=== PATIENT | female | born 1960 | race Caucasian/White ===

== ENCOUNTER 2017-06-17 13:41 | Day surgery (SDC) | payer MEDICARE ==
[~2017-06-17] VITALS: Ht 162.6 cm; Wt 74.0 kg
[~2017-06-17 13:41] MED LIST: CETI5; CLIN300; LOVA40; METF500
[2017-06-17] MEDS ORDERED: ASPI81CH (14:20)
== END 2017-06-17 16:02 | disposition home or self-care (01) ==
LOC: ORSCSDS 13:41
PROVIDERS: Surgery
PROC: 0DJD8ZZ Inspection of Lower Intestinal Tract, Via Natural or Artificial Opening Endoscopic (ICD-10-PCS; principal; 2017-06-17 14:45)
DX: Z12.11 Encounter for screening for malignant neoplasm of colon (principal); K57.30 Diverticulosis of large intestine without perforation or abscess without bleeding; E11.9 Type 2 diabetes mellitus without complications; E78.5 Hyperlipidemia, unspecified; F70 Mild intellectual disabilities; Z79.84 Long term (current) use of oral hypoglycemic drugs; Z79.899 Other long term (current) drug therapy
CPT/HCPCS: 82947; J7120

== ENCOUNTER → 2019-07-14 | Outpatient (CLI) | payer MEDICARE ==
[~2019-07-14] MED LIST changes: +ASPI81CH
[2019-07-14 13:44] LABS: BASOPHILS ABSOLUTE AUTO 0.05 K/mm3 (0.00-0.23); BASOPHILS PERCENT AUTO 0 % (0-2); EOSINOPHILS PERCENT AUTO 0 % (0-6); Hematocrit 42.6 % (33.0-51.0); Hemoglobin 14.8 g/dL (11.5-16.0); IMMATURE GRAN ABSOLUTE AUTO 0.12 K/mm3 (0.00-0.10); IMMATURE GRAN PERCENT AUTO 1 % (0-1); LYMPHOCYTES ABSOLUTE AUTO 1.34 K/mm3 (0.84-5.20); LYMPHOCYTES PERCENT AUTO 6 % (21-46); MONOCYTES ABSOLUTE AUTO 1.41 K/mm3 (0.16-1.47); MONOCYTES PERCENT AUTO 6 % (4-13); Mean Corpuscular HGB 30.4 pg (26.0-34.0); Mean Corpuscular HGB Conc 34.7 g/dL (31.5-36.5); Mean Corpuscular Volume 88 fL (80-100); Mean Platelet Volume 9.6 fL (9.1-12.4); NEUTROPHILS PERCENT AUTO 87 % (41-73); Platelet Count 312 K/mm3 (150-400); RDW Coefficient Variation 12.7 % (11.7-14.2); RDW Standard Deviation 40.6 fL (35.1-46.3); Red Blood Cell Count 4.87 M/mm3 (3.80-5.20); White Blood Cell Count 22.12 K/mm3 (4.00-11.30)
[2019-07-14 13:55] LABS: Albumin, Blood 3.9 g/dL (3.4-5.0); Albumin/Globulin Ratio 0.8 (0.8-1.8); Bilirubin, Total 0.6 mg/dL (0.1-1.0); Bun/Creatinine Ratio 22.2 (12.0-20.0); Calcium, Blood 9.3 mg/dL (8.5-10.1); Creatinine, Blood 0.99 mg/dL (0.40-1.00); Globulin, Blood 4.9 g/dL (2.2-4.0); Potassium, Blood 3.7 mmol/L (3.5-5.5); Total Protein, Blood 8.8 g/dL (6.4-8.2)
== END | disposition home or self-care (01) ==
LOC: LAB SHORT 13:39 → LAB EV 13:39
PROVIDERS: Physician Assistant
DX: R10.9 Unspecified abdominal pain (principal)
CPT/HCPCS: 80053; 83690; 85025

== ENCOUNTER → 2020-03-22 | Outpatient (CLI) | payer MEDICARE ==
[2020-03-25 14:09] LABS: CORONAVIRUS (COVID19) CSH-NRL Negative (Negative)
== END | disposition home or self-care (01) ==
LOC: LAB SHORT 14:41 → LAB 14:41
PROVIDERS: Nurse Practitioner Family
DX: Z20.9 Contact with and (suspected) exposure to unspecified communicable disease (principal); Z20.828 Contact with and (suspected) exposure to other viral communicable diseases
CPT/HCPCS: U0003

== ENCOUNTER 2020-12-18 22:53 | Emergency (ER) | payer MEDICARE ==
[~2020-12-18] VITALS: Ht 165.1 cm; Wt 81.7 kg
[2020-12-18 23:21] LABS: BASOPHILS ABSOLUTE AUTO 0.03 K/mm3 (0.00-0.23); BASOPHILS PERCENT AUTO 0 % (0-2); EOSINOPHILS ABSOLUTE AUTO 0.15 K/mm3 (0.00-0.68); EOSINOPHILS PERCENT AUTO 2 % (0-6); Hematocrit 44.4 % (33.0-51.0); Hemoglobin 14.8 g/dL (11.5-16.0); IMMATURE GRAN ABSOLUTE AUTO 0.04 K/mm3 (0.00-0.10); IMMATURE GRAN PERCENT AUTO 1 % (0-1); LYMPHOCYTES ABSOLUTE AUTO 2.58 K/mm3 (0.84-5.20); LYMPHOCYTES PERCENT AUTO 31 % (21-46); MONOCYTES ABSOLUTE AUTO 1.48 K/mm3 (0.16-1.47); MONOCYTES PERCENT AUTO 18 % (4-13); Mean Corpuscular HGB 29.5 pg (26.0-34.0); Mean Corpuscular HGB Conc 33.3 g/dL (31.5-36.5); Mean Corpuscular Volume 89 fL (80-100); Mean Platelet Volume 10.1 fL (9.1-12.4); NEUTROPHILS ABSOLUTE AUTO 4.13 K/mm3 (1.96-9.15); NEUTROPHILS PERCENT AUTO 49 % (41-73); Platelet Count 223 K/mm3 (150-400); RDW Coefficient Variation 12.6 % (11.7-14.2); RDW Standard Deviation 41.1 fL (35.1-46.3); Red Blood Cell Count 5.01 M/mm3 (3.80-5.20); White Blood Cell Count 8.41 K/mm3 (4.00-11.30)
[2020-12-18 23:42] LABS: Alanine Aminotransfer (ALT/SGP 83 U/L (12-78); Albumin, Blood 3.4 g/dL (3.4-5.0); Albumin/Globulin Ratio 0.7 (0.8-1.8); Alk Phos 95 U/L (50-136); Anion Gap 10 mmol/L (6-16); Aspartate Aminotrans (AST/SGOT 40 U/L (12-37); Bilirubin, Total 0.5 mg/dL (0.1-1.0); Blood Urea Nitrogen 22 mg/dL (8-24); Bun/Creatinine Ratio 25.6 (12.0-20.0); CO2, Blood 24 mmol/L (21-32); Chloride, Blood 103 mmol/L (98-108); Creatinine, Blood 0.86 mg/dL (0.40-1.00); Glomerular Filtration Rate >60 (60-); Glucose, Blood 138 mg/dL (70-99); Magnesium, Blood 2.1 mg/dL (1.6-2.4); Potassium, Blood 4.2 mmol/L (3.5-5.5); Sodium, Blood 137 mmol/L (136-145); Total Protein, Blood 8.4 g/dL (6.4-8.2); Troponin I <0.015 ng/mL (0.000-0.040)
== END 2020-12-19 06:05 | disposition home or self-care (01) ==
LOC: ER 22:53
PROVIDERS: Emergency Medicine
DX: R07.9 Chest pain, unspecified (principal); U07.1 COVID-19; E11.9 Type 2 diabetes mellitus without complications; I10 Essential (primary) hypertension; Z79.84 Long term (current) use of oral hypoglycemic drugs; Z79.899 Other long term (current) drug therapy; Z91.018 Allergy to other foods
CPT/HCPCS: 36415; 71045; 80053; 83735; 83880; 84145; 84484; 85025; 85379; 93005; 93010; 99285-25

== ENCOUNTER 2020-12-25 07:30 | Emergency (ER) | payer MEDICARE ==
[~2020-12-25] VITALS: Ht 165.1 cm; Wt 81.7 kg
[2020-12-25] MEDS ORDERED: ASPI81CH PO (07:45)
[2020-12-25] MEDS ORDERED: ATEN25 PO (07:45)
[2020-12-25] MEDS ORDERED: ZYRTEC10 M2 PO (07:46)
[2020-12-25] MEDS ORDERED: SITA100T2 PO (07:46)
[2020-12-25] MEDS ORDERED: ATOR20 PO (07:46)
[2020-12-25] MEDS ORDERED: AMARYL PO (07:46)
[2020-12-25] MEDS ORDERED: Colace100 MG PO (07:46)
[2020-12-25] MEDS ORDERED: METF500 PO (07:47)
[2020-12-25] MEDS ORDERED: SALONPAS PATCH1 EACH TOP (07:47)
[2020-12-25] MEDS ORDERED: Prinivil10 MG PO (07:47)
[2020-12-25] MEDS ORDERED: TUMS500 MG PO (07:48)
[2020-12-25 08:52] LABS: BASOPHILS ABSOLUTE AUTO 0.04 K/mm3 (0.00-0.23); BASOPHILS PERCENT AUTO 0 % (0-2); EOSINOPHILS ABSOLUTE AUTO 0.08 K/mm3 (0.00-0.68); EOSINOPHILS PERCENT AUTO 1 % (0-6); Hemoglobin 14.6 g/dL (11.5-16.0); IMMATURE GRAN ABSOLUTE AUTO 0.07 K/mm3 (0.00-0.10); IMMATURE GRAN PERCENT AUTO 1 % (0-1); LYMPHOCYTES ABSOLUTE AUTO 2.14 K/mm3 (0.84-5.20); LYMPHOCYTES PERCENT AUTO 17 % (21-46); MONOCYTES ABSOLUTE AUTO 0.74 K/mm3 (0.16-1.47); MONOCYTES PERCENT AUTO 6 % (4-13); Mean Corpuscular Volume 88 fL (80-100); Mean Platelet Volume 9.5 fL (9.1-12.4); NEUTROPHILS ABSOLUTE AUTO 9.26 K/mm3 (1.96-9.15); NEUTROPHILS PERCENT AUTO 75 % (41-73); Platelet Count 292 K/mm3 (150-400); RDW Coefficient Variation 12.3 % (11.7-14.2); Red Blood Cell Count 4.87 M/mm3 (3.80-5.20); White Blood Cell Count 12.33 K/mm3 (4.00-11.30)
[2020-12-25 09:19] LABS: Alanine Aminotransfer (ALT/SGP 125 U/L (12-78); Albumin, Blood 3.4 g/dL (3.4-5.0); Albumin/Globulin Ratio 0.6 (0.8-1.8); Alk Phos 96 U/L (50-136); Anion Gap 8 mmol/L (6-16); Aspartate Aminotrans (AST/SGOT 70 U/L (12-37); Bilirubin, Total 0.5 mg/dL (0.1-1.0); Blood Urea Nitrogen 38 mg/dL (8-24); Bun/Creatinine Ratio 43.2 (12.0-20.0); CO2, Blood 18 mmol/L (21-32); Calcium, Blood 7.9 mg/dL (8.5-10.1); Chloride, Blood 109 mmol/L (98-108); Creatinine, Blood 0.88 mg/dL (0.40-1.00); Globulin, Blood 5.3 g/dL (2.2-4.0); Glomerular Filtration Rate >60 (60-); Glucose, Blood 174 mg/dL (70-99); Sodium, Blood 135 mmol/L (136-145); Total Protein, Blood 8.7 g/dL (6.4-8.2); Troponin I <0.015 ng/mL (0.000-0.040)
== END 2020-12-25 18:30 | disposition home or self-care (01) ==
LOC: ER 07:30
PROVIDERS: Emergency Medicine
DX: U07.1 COVID-19 (principal); R07.9 Chest pain, unspecified; Z79.82 Long term (current) use of aspirin; Z79.899 Other long term (current) drug therapy; Z79.84 Long term (current) use of oral hypoglycemic drugs
CPT/HCPCS: 36415; 71045; 80053; 83690; 84484; 85025; 93005; 93010; 99284-25; M0243; Q0243

== ENCOUNTER 2022-10-14 19:04 | Emergency (ER) | payer MEDICARE ==
[~2022-10-14] VITALS: Ht 165.1 cm; Wt 45.4 kg
[~2022-10-14 19:04] MED LIST changes: +AMARYL PO; +ASPI81CH PO; +ATEN25 PO; +ATOR20 PO; +Colace100 MG PO; +METF500 PO; +Prinivil10 MG PO; +SALONPAS PATCH1 EACH TOP; +SITA100T2 PO; +TUMS500 MG PO; +ZYRTEC10 M2 PO
[2022-10-14 19:20] VITALS: BP 140/87
== END 2022-10-14 19:53 | disposition home or self-care (01) ==
LOC: ER 19:04
DX: M79.644 Pain in right finger(s) (principal); M77.9 Enthesopathy, unspecified; Z88.8 Allergy status to other drugs, medicaments and biological substances; Z91.018 Allergy to other foods; Z79.899 Other long term (current) drug therapy; Z79.82 Long term (current) use of aspirin; Z79.84 Long term (current) use of oral hypoglycemic drugs; I10 Essential (primary) hypertension; E11.9 Type 2 diabetes mellitus without complications
CPT/HCPCS: 29125; 99282-25

== ENCOUNTER 2023-01-08 14:36 | Emergency (ER) | payer MEDICARE ==
[~2023-01-08] VITALS: Ht 165.1 cm; Wt 81.7 kg
[2023-01-08] MEDS ORDERED: OMEP20ER PO (14:58)
[2023-01-08] MEDS ORDERED: RYBELSUS3 MG PO (14:58)
[2023-01-08 15:19] LABS: BASOPHILS ABSOLUTE AUTO 0.03 K/mm3 (0.00-0.23); BASOPHILS PERCENT AUTO 0 % (0-2); EOSINOPHILS ABSOLUTE AUTO 0.11 K/mm3 (0.00-0.68); EOSINOPHILS PERCENT AUTO 1 % (0-6); Hematocrit 42.8 % (33.0-51.0); IMMATURE GRAN ABSOLUTE AUTO 0.05 K/mm3 (0.00-0.10); IMMATURE GRAN PERCENT AUTO 1 % (0-1); LYMPHOCYTES ABSOLUTE AUTO 2.68 K/mm3 (0.84-5.20); LYMPHOCYTES PERCENT AUTO 28 % (21-46); MONOCYTES ABSOLUTE AUTO 0.62 K/mm3 (0.16-1.47); MONOCYTES PERCENT AUTO 6 % (4-13); Mean Corpuscular HGB 30.5 pg (26.0-34.0); Mean Corpuscular Volume 87 fL (80-100); Mean Platelet Volume 10.3 fL (9.1-12.4); NEUTROPHILS ABSOLUTE AUTO 6.24 K/mm3 (1.96-9.15); NEUTROPHILS PERCENT AUTO 64 % (41-73); Platelet Count 250 K/mm3 (150-400); RDW Coefficient Variation 12.1 % (11.7-14.2); RDW Standard Deviation 38.5 fL (35.1-46.3); Red Blood Cell Count 4.91 M/mm3 (3.80-5.20); White Blood Cell Count 9.73 K/mm3 (4.00-11.30)
[2023-01-08 15:44] LABS: Albumin, Blood 3.3 g/dL (3.4-5.0); Albumin/Globulin Ratio 0.8 (0.8-1.8); Bilirubin, Total 0.5 mg/dL (0.1-1.0); Bun/Creatinine Ratio 28.4 (12.0-20.0); Calcium, Blood 8.8 mg/dL (8.5-10.1); Creatinine, Blood 0.67 mg/dL (0.40-1.00); Globulin, Blood 4.3 g/dL (2.2-4.0); Potassium, Blood 3.8 mmol/L (3.5-5.5); Total Protein, Blood 7.6 g/dL (6.4-8.2)
[2023-01-08 19:00] VITALS: BP 117/69
== END 2023-01-08 19:21 | disposition home or self-care (01) ==
LOC: ER 14:36
PROVIDERS: Student in an Organized Health Care Education/Training Program
DX: R10.13 Epigastric pain (principal); E11.65 Type 2 diabetes mellitus with hyperglycemia; K82.4 Cholesterolosis of gallbladder; I10 Essential (primary) hypertension; Z79.899 Other long term (current) drug therapy; Z79.82 Long term (current) use of aspirin; Z79.84 Long term (current) use of oral hypoglycemic drugs; Z91.014 Allergy to mammalian meats; Z91.018 Allergy to other foods
CPT/HCPCS: 76705; 80053; 82947; 83690; 84484; 85025; 93005; 93010; 96361; 96374; 99285-25; A9270; J1815; J1885; J7030

== ENCOUNTER 2023-01-09 18:56 | Inpatient (IN) | payer MEDICARE ==
[~2023-01-09] VITALS: Ht 165.1 cm; Wt 81.3 kg
[~2023-01-09 18:56] MED LIST changes: +OMEP20ER PO; +RYBELSUS3 MG PO
[2023-01-09 21:01] LABS: BASOPHILS ABSOLUTE AUTO 0.05 K/mm3 (0.00-0.23); BASOPHILS PERCENT AUTO 0 % (0-2); EOSINOPHILS PERCENT AUTO 0 % (0-6); Hematocrit 41.7 % (33.0-51.0); Hemoglobin 14.7 g/dL (11.5-16.0); IMMATURE GRAN ABSOLUTE AUTO 0.25 K/mm3 (0.00-0.10); IMMATURE GRAN PERCENT AUTO 1 % (0-1); LYMPHOCYTES ABSOLUTE AUTO 1.14 K/mm3 (0.84-5.20); LYMPHOCYTES PERCENT AUTO 5 % (21-46); MONOCYTES ABSOLUTE AUTO 1.21 K/mm3 (0.16-1.47); MONOCYTES PERCENT AUTO 5 % (4-13); Mean Corpuscular HGB 30.5 pg (26.0-34.0); Mean Corpuscular HGB Conc 35.3 g/dL (31.5-36.5); Mean Corpuscular Volume 87 fL (80-100); Mean Platelet Volume 10.3 fL (9.1-12.4); NEUTROPHILS ABSOLUTE AUTO 22.04 K/mm3 (1.96-9.15); NEUTROPHILS PERCENT AUTO 89 % (41-73); Platelet Count 234 K/mm3 (150-400); RDW Coefficient Variation 12.8 % (11.7-14.2); RDW Standard Deviation 39.8 fL (35.1-46.3); Red Blood Cell Count 4.82 M/mm3 (3.80-5.20); White Blood Cell Count 24.69 K/mm3 (4.00-11.30)
[2023-01-09 21:22] LABS: Albumin, Blood 2.9 g/dL (3.4-5.0); Albumin/Globulin Ratio 0.6 (0.8-1.8); Bilirubin, Total 0.7 mg/dL (0.1-1.0); Bun/Creatinine Ratio 21.6 (12.0-20.0); Calcium, Blood 8.3 mg/dL (8.5-10.1); Creatinine, Blood 0.88 mg/dL (0.40-1.00); Globulin, Blood 4.6 g/dL (2.2-4.0); Potassium, Blood 3.9 mmol/L (3.5-5.5); Total Protein, Blood 7.5 g/dL (6.4-8.2)
[2023-01-09 23:53] VITALS: BP 100/67
[2023-01-10 03:54] VITALS: BP 104/64
--- NOTE | 2023-01-10 04:52 | NUR ---
SHIFT SUMMARY NOC ADMIT FROM ED WITH RUQ ABD PAIN ACUTE Cholecystitis. PT IS HAVING CHOLY IN THE AM TODAY. PT HAS NOT HAD ANY SEVERE PAIN AND HAS NOT REQUEST PAIN RX. PT IS NPO IN PREPARATION OF PROCEDURE. PT HAS NS INFUSING @ 150 ML/HR PER SEPSIS PROTOCOL. PT ON TELE NSR IN 80'S. PT IS A/O X 4, BUT SLOW AT TIMES DUE TO DEVELOPMENTAL DELAY AND HAS GUARDIANSHIP. PT IS INDEPENDENT IN ROOM BUT ON BEDREST WITH BATHROOM PRIVLEDGES DUE TO UPCOMING SURGERY. PT IS CURRENTLY RESTING WITH BED IN LOWEST POSITION, AND CALL LIGHT WITHIN REACH.
[2023-01-10 05:51] LABS: Hematocrit 36.9 % (33.0-51.0); Hemoglobin 12.7 g/dL (11.5-16.0); Mean Corpuscular HGB 30.3 pg (26.0-34.0); Mean Corpuscular HGB Conc 34.4 g/dL (31.5-36.5); Mean Corpuscular Volume 88 fL (80-100); Mean Platelet Volume 10.5 fL (9.1-12.4); Platelet Count 209 K/mm3 (150-400); RDW Coefficient Variation 12.9 % (11.7-14.2); RDW Standard Deviation 41.1 fL (35.1-46.3); Red Blood Cell Count 4.19 M/mm3 (3.80-5.20); White Blood Cell Count 19.64 K/mm3 (4.00-11.30)
[2023-01-10 06:25] LABS: Albumin, Blood 2.5 g/dL (3.4-5.0); Albumin/Globulin Ratio 0.6 (0.8-1.8); Bilirubin, Total 0.5 mg/dL (0.1-1.0); Bun/Creatinine Ratio 28.1 (12.0-20.0); Calcium, Blood 7.8 mg/dL (8.5-10.1); Creatinine, Blood 0.71 mg/dL (0.40-1.00); Globulin, Blood 3.9 g/dL (2.2-4.0); Potassium, Blood 3.4 mmol/L (3.5-5.5); Total Protein, Blood 6.4 g/dL (6.4-8.2)
[2023-01-10 07:11] VITALS: BP 98/62
--- NOTE | 2023-01-10 11:17 | NUR ---
ASSUMED CARE OF PT. PT NPO IN PREPARATION FOR SURGERY. MRI ORDERED, PT ABLE TO ANSWER QUESTIONAIRES APPROPRIATELY. PT VERBALIZES MINOR ANXIETY R/T UPCOMING SURGERY, THERAPEUTIC COMMUNICATION USED TO RELIEVE ANXIETY. BP TRENDING LOW, NO SYMPTOMS VERBALIZED. PT A&O 3-4, ABLE TO ANSWER QUESTIONS APPROPRIATELY. HX OF DEVELOPMENTAL DELAYS. NO ACUTE EVENTS NOTED AT THIS TIME. PT IN A POSITION OF SAFETY WITH BED LOCKED AND IN LOWEST POSITION, CALL LIGHT WITHIN REACH, AND NONSKID SOCKS IN PLACE.
[2023-01-10 15:49] VITALS: BP 114/71
--- NOTE | 2023-01-10 15:51 | NUR ---
SURGEON IN ROOM TO TALK TO PT. SURGEON TO CALL GUARDIAN AND PCP REGARDING UPDATES.
--- NOTE | 2023-01-10 17:20 | NUR ---
PT INFORMED WHILE DOING HER CBG AND GIVING HER A HALF SANDWICH AND ICE TEA SHE HAD REQUESTED SHE WAS GOING [facility]. THIS RN ADVISED PT OF RISKS INVOLVED IN LEAVING PRIOR TO END OF TREATMENT: WORSENING INFECTION, NECROSIS OF WOUND, RESPIRATORY FAILURE, . PT VU AND RESPONDED "YOU KNOW, WELL I GOTTA DO WHAT I GOTTA GO HOME AND DO." I INFORMED THE PATIENT SHE WILL LIKELY NEED TO RETURN TO THE ER AND SHE RESPONDED "THEN I WILL GO HOME AND DO WHAT I NEED TO DO AND COME BACK." PT STATED SHE WOULD LEAVE WHEN HER GOT HERE [facility]. PT THEN CALLED AT 1715 AND SAID "TAKE MY IV'S OUT NOW, I'M LEAVING." DR. CABAN NOTIFIED OF PT LEAVING AMA.
--- NOTE | 2023-01-10 17:44 | NUR ---
SHIFT SUMMARY PT A&OX3-4, HX OF DEVELOPMENTAL DELAYS. ANSWERS QUESTIONS CORRECTLY. PT RECEIVED ABDOMINAL MRI. PT DID NOT RECEIVE SURGERY, SURGEON AT BEDSIDE TO INFORM OF THE NEED OF SURGERY ELSEWHERE. DIET ADVANCED TO CLEAR LIQUIDS, PT TOLERATING DIET WELL. NO COMPLAINTS OF PAIN. NO ACUTE EVENTS DURING MY SHIFT, VITAL SIGNS STABLE, PT LEFT IN A POSITION OF COMFORT AND SAFETY WITH BED LOCKED AND IN LOWEST POSITION, NONSKID SOCKS IN PLACE, AND CALL LIGHT WITHIN REACH.
[2023-01-10 19:48] VITALS: BP 97/63
[2023-01-11 05:26] VITALS: BP 129/77
[2023-01-11 05:36] LABS: BASOPHILS ABSOLUTE AUTO 0.04 K/mm3 (0.00-0.23); BASOPHILS PERCENT AUTO 0 % (0-2); EOSINOPHILS ABSOLUTE AUTO 0.12 K/mm3 (0.00-0.68); EOSINOPHILS PERCENT AUTO 1 % (0-6); Hemoglobin 13.4 g/dL (11.5-16.0); IMMATURE GRAN PERCENT AUTO 1 % (0-1); LYMPHOCYTES ABSOLUTE AUTO 2.57 K/mm3 (0.84-5.20); LYMPHOCYTES PERCENT AUTO 15 % (21-46); MONOCYTES ABSOLUTE AUTO 1.24 K/mm3 (0.16-1.47); MONOCYTES PERCENT AUTO 7 % (4-13); Mean Corpuscular HGB Conc 34.4 g/dL (31.5-36.5); Mean Corpuscular Volume 87 fL (80-100); Mean Platelet Volume 10.1 fL (9.1-12.4); NEUTROPHILS ABSOLUTE AUTO 13.59 K/mm3 (1.96-9.15); NEUTROPHILS PERCENT AUTO 77 % (41-73); Platelet Count 222 K/mm3 (150-400); RDW Coefficient Variation 12.9 % (11.7-14.2); RDW Standard Deviation 40.7 fL (35.1-46.3); Red Blood Cell Count 4.46 M/mm3 (3.80-5.20); White Blood Cell Count 17.66 K/mm3 (4.00-11.30)
[2023-01-11 06:08] LABS: Albumin, Blood 2.3 g/dL (3.4-5.0); Albumin/Globulin Ratio 0.5 (0.8-1.8); Bilirubin, Total 0.6 mg/dL (0.1-1.0); Bun/Creatinine Ratio 18.9 (12.0-20.0); Calcium, Blood 7.8 mg/dL (8.5-10.1); Creatinine, Blood 0.58 mg/dL (0.40-1.00); Globulin, Blood 4.5 g/dL (2.2-4.0); Magnesium, Blood 1.9 mg/dL (1.6-2.4); Phosphorus, Blood 1.4 mg/dL (2.5-4.9); Potassium, Blood 3.6 mmol/L (3.5-5.5); Total Protein, Blood 6.8 g/dL (6.4-8.2)
[2023-01-11 07:58] VITALS: BP 124/75
[2023-01-11 15:32] VITALS: BP 127/74
--- NOTE | 2023-01-11 17:54 | NUR ---
SHIFT SUMMARY- PT AERT AND ORIENTED, LIVES AT [facility]. PT SEEMS TO HAVE A LACK OF UNDERSTANDING OF HER HEALTH CARE ISSUES. DR ROSALES CAME TO SEE HER AFTER HER HIDA SCAN TODAY AND EXPLAINED THAT SHE WILL NEED TO BE TRANSFERED TO ANOTHER FACILITY FOR SURGERY AND THAT MAY TAKE SEVERAL DAYS, CALLLED DR JHAVERI HE IS AWARE OF THE RECOMENDATION. A LITTLE LATER THE PT ASKED THIS RN IF SHE WAS GOING TO HAVE TO STAY THE NIGHT AGAIN TONIGHT. PT HAS 2 IV'S THE LEFT AC IV FLUSHES WELL BUT IS VERY POSITIONAL, RFA IV IS GOOD FOR CONT FLUIDS. PT IS INDEPEDENT IN THE ROOM, SITTING UP IN BED EATING HER CLEAR LIQUID DINNER NO CURRENT S&S OF DISTRESS.
[2023-01-11 20:59] VITALS: BP 130/89
[2023-01-12 03:10] VITALS: BP 118/75
--- NOTE | 2023-01-12 03:20 | NUR ---
No changes overnight for Tere. She had no complaints of pain or discomfort. Did really well ambulating from bed to bath with just a standby from nursing staff. No difficulty tolerating IV antibiotics or fluids throughout the shift. will continue monitoring for safety or changes.
[2023-01-12 07:56] VITALS: BP 123/80
[2023-01-12 16:34] LABS: BASOPHILS ABSOLUTE AUTO 0.04 K/mm3 (0.00-0.23); BASOPHILS PERCENT AUTO 0 % (0-2); EOSINOPHILS ABSOLUTE AUTO 0.09 K/mm3 (0.00-0.68); EOSINOPHILS PERCENT AUTO 1 % (0-6); Hematocrit 38.3 % (33.0-51.0); Hemoglobin 13.4 g/dL (11.5-16.0); IMMATURE GRAN ABSOLUTE AUTO 0.11 K/mm3 (0.00-0.10); IMMATURE GRAN PERCENT AUTO 1 % (0-1); LYMPHOCYTES ABSOLUTE AUTO 2.21 K/mm3 (0.84-5.20); LYMPHOCYTES PERCENT AUTO 21 % (21-46); MONOCYTES ABSOLUTE AUTO 1.04 K/mm3 (0.16-1.47); MONOCYTES PERCENT AUTO 10 % (4-13); Mean Corpuscular HGB 29.9 pg (26.0-34.0); Mean Corpuscular Volume 86 fL (80-100); Mean Platelet Volume 9.8 fL (9.1-12.4); NEUTROPHILS ABSOLUTE AUTO 7.07 K/mm3 (1.96-9.15); NEUTROPHILS PERCENT AUTO 67 % (41-73); Platelet Count 275 K/mm3 (150-400); RDW Coefficient Variation 12.6 % (11.7-14.2); RDW Standard Deviation 38.9 fL (35.1-46.3); Red Blood Cell Count 4.48 M/mm3 (3.80-5.20); White Blood Cell Count 10.56 K/mm3 (4.00-11.30)
--- NOTE | 2023-01-12 16:42 | NUR ---
CALLED DR JHAVERI- GUARDIAN PHONE NUMBER PT HAD CALLED HER FRIEND TO TELL HER SHE NEEDED A RIDE TO [place] TOMORROW MORNING. THE FRIEND WAS CONCERNED SHE HAD NOT HEARD THIS FROM THE PT LEGAL GUARDIAN. SHE CAME TO SEE THE PT AND CONVEYED CONCERN THAT THE PT LEGAL GUARDIAN HAS NOT BEEN INFORMED OF THE PLAN FOR THE PT CARE. CALLED DR JHAVERI AND OFFERED TO PROVIDE HIM WITH THE PT LEGAL GUARDIAN'S CONTACT INFO: MILI HINOJOSA [phone].
[2023-01-12 16:53] LABS: Albumin, Blood 2.5 g/dL (3.4-5.0); Albumin/Globulin Ratio 0.5 (0.8-1.8); Bilirubin, Total 0.7 mg/dL (0.1-1.0); Bun/Creatinine Ratio 14.7 (12.0-20.0); Calcium, Blood 8.5 mg/dL (8.5-10.1); Creatinine, Blood 0.61 mg/dL (0.40-1.00); Globulin, Blood 4.6 g/dL (2.2-4.0); Potassium, Blood 2.9 mmol/L (3.5-5.5); Total Protein, Blood 7.1 g/dL (6.4-8.2)
[2023-01-12 20:08] VITALS: BP 122/70
--- NOTE | 2023-01-12 20:20 | NUR ---
SHIFT SUMMARY- PT ALERT, ORIENTED AND INDEPENDENT IN THE ROOM, SHE HAD A SHOWER TODAY. REPORT COMPLETED WITH NIGHT RN PT HAS HAD NO ACUTE CHANGE. THE PLAN IS FOR THE PT TO DISCHARGE TOMORROW MORNING, SHE HAS ASKED A FRIEND TO TRANSPORT HER TO [facility], UNCERTAIN IF THE PT GUARDIAN IS FULLY AWARE OF THE PLAN FOR PT DISCHARGE. PT SITTING IN BED, CALL LIGHT IN REACH LR INFUSING, NO S&S OF DISTRESS.
[2023-01-13 07:36] VITALS: BP 132/85
[2023-01-13 14:36] LABS: BASOPHILS ABSOLUTE AUTO 0.02 K/mm3 (0.00-0.23); BASOPHILS PERCENT AUTO 0 % (0-2); EOSINOPHILS ABSOLUTE AUTO 0.14 K/mm3 (0.00-0.68); EOSINOPHILS PERCENT AUTO 2 % (0-6); Hemoglobin 12.9 g/dL (11.5-16.0); IMMATURE GRAN ABSOLUTE AUTO 0.08 K/mm3 (0.00-0.10); IMMATURE GRAN PERCENT AUTO 1 % (0-1); LYMPHOCYTES ABSOLUTE AUTO 2.06 K/mm3 (0.84-5.20); LYMPHOCYTES PERCENT AUTO 23 % (21-46); MONOCYTES ABSOLUTE AUTO 1.06 K/mm3 (0.16-1.47); MONOCYTES PERCENT AUTO 12 % (4-13); Mean Corpuscular HGB 30.6 pg (26.0-34.0); Mean Corpuscular HGB Conc 35.8 g/dL (31.5-36.5); Mean Corpuscular Volume 85 fL (80-100); Mean Platelet Volume 9.4 fL (9.1-12.4); NEUTROPHILS ABSOLUTE AUTO 5.69 K/mm3 (1.96-9.15); NEUTROPHILS PERCENT AUTO 63 % (41-73); Platelet Count 284 K/mm3 (150-400); RDW Coefficient Variation 12.4 % (11.7-14.2); RDW Standard Deviation 38.5 fL (35.1-46.3); Red Blood Cell Count 4.22 M/mm3 (3.80-5.20); White Blood Cell Count 9.05 K/mm3 (4.00-11.30)
[2023-01-13 14:54] LABS: Albumin, Blood 2.3 g/dL (3.4-5.0); Albumin/Globulin Ratio 0.5 (0.8-1.8); Bilirubin, Total 0.6 mg/dL (0.1-1.0); Bun/Creatinine Ratio 8.8 (12.0-20.0); Calcium, Blood 8.3 mg/dL (8.5-10.1); Creatinine, Blood 0.69 mg/dL (0.40-1.00); Globulin, Blood 4.6 g/dL (2.2-4.0); Magnesium, Blood 1.8 mg/dL (1.6-2.4); Potassium, Blood 3.3 mmol/L (3.5-5.5); Total Protein, Blood 6.9 g/dL (6.4-8.2)
[2023-01-13 16:10] VITALS: BP 121/66
[2023-01-13 19:39] VITALS: BP 119/83
--- NOTE | 2023-01-13 20:15 | NUR ---
SHIFT SUMMARY- PT HAS HAD NO ACUTE CHANGE T/O THE SHIFT. PLAN IS FOR HER TO DISCHARGE HOME TOMORROW. GUARDIAN AWARE. PT STATES HER FRIEND WILL BE HERE TO GET HER AT 1000 TO TAKE HER HOME TO [facility] AND ANOTHER FRIEND WILL BE TAKING HER TO [facility]. REPORT COMPLETED WITH NIGHT RN. PT IN BED, CALL LIGHT IN REACH NO S&S OF DISTRESS NOTED.
[2023-01-14 04:16] VITALS: BP 131/80
--- NOTE | 2023-01-14 06:49 | NUR ---
NO CHANGES OVERNIGHT FOR JUANITA. SHE IS EXCITED ABOUT HER DISCHARGE TODAY. NO COMPLAINTS OR INDICATIONS OF PAIN OR DISCOMFORT. PATIENT IS INDEPENDENT IN ROOM AND IS TOLERATING IV ANTIBIOTICS WITHOUT DIFFICULTY
[2023-01-14 07:04] VITALS: BP 133/78
--- NOTE | 2023-01-14 12:30 | NUR ---
DISCHARGE INSTRUCTIONS COMPLETED AND DISCUSSED WITH PT AND HER PCAS. PLANS FOR PT TO GO DIRECTLY TO [facility] AFTER PACKING A BAG. TO [facility] VIA W/C.
== END 2023-01-14 12:21 | disposition home or self-care (01) | DRG 872 ==
LOC: ER 18:56 → MEDS 23:15
PROVIDERS: Hospitalist; Internal Medicine; Physician Assistant; ADMIT Internal Medicine
DX: A41.9 Sepsis, unspecified organism (principal); E87.20 Acidosis, unspecified; N17.9 Acute kidney failure, unspecified; K80.20 Calculus of gallbladder without cholecystitis without obstruction; R65.20 Severe sepsis without septic shock; I10 Essential (primary) hypertension; E11.65 Type 2 diabetes mellitus with hyperglycemia; N83.202 Unspecified ovarian cyst, left side; F79 Unspecified intellectual disabilities; N83.201 Unspecified ovarian cyst, right side; K76.0 Fatty (change of) liver, not elsewhere classified; K82.8 Other specified diseases of gallbladder; Z90.89 Acquired absence of other organs; Z90.710 Acquired absence of both cervix and uterus; Z91.014 Allergy to mammalian meats; Z91.018 Allergy to other foods; Z79.82 Long term (current) use of aspirin; Z79.84 Long term (current) use of oral hypoglycemic drugs; Z79.811 Long term (current) use of aromatase inhibitors; Z79.899 Other long term (current) drug therapy; Z98.890 Other specified postprocedural states; Z98.51 Tubal ligation status
CPT/HCPCS: 36415; 74177; 74183; 78226; 80053; 82947; 83036; 83605; 83690; 83735; 84100; 85025; 85027; 87040; 96360-59; 99285-25; A9270; A9537; A9579; C9113; J1815; J2543; J3480; J7030; J7050; J7120; Q9967

== ENCOUNTER → 2023-02-04 | Outpatient (CLI) | payer MEDICARE ==
[~2023-02-04] MED LIST changes: +AMOX-CLAV 875-1 EAC5 PO; +ONDA4ODT MM
[2023-02-04 16:03] LABS: Creatinine, Urine Random 81.9 mg/dL (27.00-270.00)
[2023-02-04 16:06] LABS: Microalb/Creat Ratio UR, Rand 35.043 mg/g (0.000-30.000); Microalbumin, Random Urine 28.7 mg/L (0.000-20.000)
== END ==
LOC: LAB SHORT 02-01 19:35 → LAB 02-01 19:35
PROVIDERS: Hospitalist
DX: E11.9 Type 2 diabetes mellitus without complications (principal)
CPT/HCPCS: 82043; 82570

== ENCOUNTER → 2023-03-25 | Outpatient (CLI) | payer MEDICARE | END | disposition home or self-care (01) | LOC: LAB SHORT 13:55 → LAB 13:55 | DX: R11.0 Nausea (principal); R30.0 Dysuria | CPT/HCPCS: 87086 ==